=== PATIENT | male | born 1965 | race Caucasian/White ===

== ENCOUNTER 2017-12-13 15:11 | Emergency (ER) | payer OTHER ==
[2017-12-13] MEDS: SOD CHLORIDE 0.9% 1,000 ML IV (16:57)
[2017-12-13] MEDS: ONDANSETRON 4 MG INJ IV (17:00)
[2017-12-13] MEDS: morphine 4 MG/ML VIAL IV (17:01)
[2017-12-13 17:07] LABS: ADD MAN DIFF? NO
[2017-12-13 17:09] LABS: BASOPHILS % 0.3 % (0.0-2.0); EOSINOPHILS # 0.1 10^3/ul (0.0-0.5); EOSINOPHILS % 1.5 % (0.0-7.0); HEMATOCRIT 47.7 % (42.0-52.0); HEMOGLOBIN 15.6 g/dl (14.0-18.0); LYMPHOCYTES # 3.1 10^3/ul (0.8-2.9); MEAN CORPUSCULAR HEMOGLOBIN 28.1 pg (29.0-33.0); MEAN CORPUSCULAR HGB CONC 32.7 g/dl (32.0-37.0); MEAN CORPUSCULAR VOLUME 85.9 fl (82.0-101.0); MONOCYTE # 0.7 10^3/ul (0.3-0.9); MONOCYTES % 9.2 % (0.0-11.0); NEUTROPHIL # 3.4 10^3/ul (1.6-7.5); NEUTROPHILS % 46.6 % (39.0-77.0); PLATELET COUNT 251 10^3/UL (140-415); RED BLOOD COUNT 5.55 10^6/ul (4.70-6.10); RED CELL DISTRIBUTION WIDTH 13.1 % (11.5-14.5)
[2017-12-13 17:09] LABS: WHITE BLOOD COUNT 7.3 10^3/ul (4.8-10.8)
[2017-12-13 17:35] LABS: INR 0.98; PROTIME 13.1 Sec (11.9-14.9)
[2017-12-13 17:36] LABS: PARTIAL THROMBOPLASTIN TIME 28.4 Sec (25.0-35.0)
[2017-12-13 18:18] LABS: ANION GAP 14 (8-16); BLOOD UREA NITROGEN 16 mg/dl (7-20); CALCIUM 9.1 mg/dl (8.4-10.2); CARBON DIOXIDE 35 mmol/L (21-31); CHLORIDE 92 mmol/L (97-110); POTASSIUM 3.8 mmol/L (3.5-5.1); SODIUM 137 mmol/L (135-144)
[2017-12-13 18:19] LABS: GLUCOSE 432 mg/dl (70-220)
[2017-12-13 18:30] LABS: ERYTHROCYTE SEDIMENTATION RATE 14 mm/Hr (0-20)
[2017-12-13] MEDS: INSULIN LISPRO 100 UNIT/ML VIAL SC (19:27)
[2017-12-13] MEDS: KETOROLAC 15 MG INJ IV (19:28)
== END 2017-12-13 19:35 | disposition home or self-care (01) ==
LOC: FTE 15:11
DX: R51 Headache (principal); E11.9 Type 2 diabetes mellitus without complications; R06.02 Shortness of breath
CPT/HCPCS: 36415; 70450; 80048; 82962; 85025; 85610; 85651; 85730; 96372; 96374; 96375; 99285-25